=== PATIENT | female | born 1995 | race Hispanic/Latino ===

== ENCOUNTER 2021-04-16 15:27 | Emergency (ER) | payer MEDICAID ==
[~2021-04-16] VITALS: Ht 157.5 cm; Wt 54.9 kg
[2021-04-16 15:28] VITALS: BP 126/85
[2021-04-16 15:50] LABS: BASOPHILS % (AUTO) 0.9 % (0.0-5.0); EOSINOPHILS % (AUTO) 0.3 % (0.0-8.0); HEMATOCRIT 33.5 % (36-48); LYMPHOCYTES % (AUTO) 71.3 % (21.0-51.0); MEAN CORPUSCULAR HEMOGLOBIN 25.1 pg (27.0-33.0); MEAN CORPUSCULAR HGB CONC 31.9 g/dL (32.0-36.0); MEAN CORPUSCULAR VOLUME 78.5 fL (79-99); MONOCYTES % (AUTO) 5.5 % (3.0-13.0); NEUTROPHILS % (AUTO) 21.8 % (40.0-77.0); PLATELET COUNT (AUTO) 277 K/uL (130-400); RED BLOOD CELL COUNT(AUTO) 4.27 MIL/uL (4.00-5.50); RED CELL DISTRIBUTION WIDTH 15.2 % (11.0-15.5); WHITE BLOOD COUNT (AUTO) 6.6 K/uL (4.8-10.8)
[2021-04-16] MEDS ORDERED: FAMOTIDINE 20MG VIAL IV ONE ×2 (16:00→16:02)
[2021-04-16] MEDS ORDERED: KETOROLAC 30MG VIAL (30MG/ML) IV ONE (16:00)
[2021-04-16 16:02] LABS: APPEARANCE,URINE Cloudy (CLEAR); BILIRUBIN,URINE Negative (NEGATIVE); COLOR,URINE Yellow (YELLOW); GLUCOSE, URINE (UA) Negative (NEGATIVE); KETONES,URINE 15 mg/dL (NEGATIVE); LEUKOCYTE ESTERASE ,URINE Moderate (NEGATIVE); NITRATE,URINE Negative (NEGATIVE); OCCULT BLOOD,URINE Negative (NEGATIVE); PH,URINE 6.5 (5.0-8.0); PROTEIN,URINE Trace mg/dL (NEGATIVE)
[2021-04-16 16:07] LABS: HCG,QUAL RESULT NEGATIVE (NEGATIVE)
[2021-04-16 16:18] LABS: CREATININE 0.7 mg/dL (0.5-1.5); POTASSIUM 4.1 mmol/L (3.5-5.1)
[2021-04-16 16:19] LABS: BACTERIA,URINE Few /HPF (None Seen); MUCUS,URINE Moderate LPF (None Seen); SQUAMOUS EPITHELIAL CELL,UR Moderate /HPF (0-2)
[2021-04-16 16:21] LABS: YEAST,URINE BUDDING Few /HPF (None Seen)
[2021-04-16 16:24] LABS: ALBUMIN 3.9 g/dL (3.5-5.0); BILIRUBIN,TOTAL 0.3 mg/dL (0.2-1.0); TOTAL PROTEIN, SERUM 8.1 g/dL (6.0-8.3)
[2021-04-16] MEDS ORDERED: IOHEXOL-350 75 ML VIAL IV ONE (16:34)
[2021-04-16] MEDS ORDERED: KETOROLAC 30MG VIAL (30MG/ML) ONE (17:04)
[2021-04-16] MEDS ORDERED: CEPH500B PO (18:00)
[2021-04-16] MEDS ORDERED: CEFTRIAXONE 1G VIAL IVP ONE (18:00)
[2021-04-16] MEDS ORDERED: DICY20TA2 PO (18:00)
== END 2021-04-16 18:17 | disposition home or self-care (01) ==
LOC: EDH 15:27
DX: N39.0 Urinary tract infection, site not specified (principal); Z79.1 Long term (current) use of non-steroidal anti-inflammatories (NSAID)
CPT/HCPCS: 36415; 74177; 80053; 81001; 81025; 82150; 82550; 83690; 85025; 87088; 96374; 96375; 99285; J0696; J1885; J3490; S0028; Q9967